=== PATIENT | female | born 2000 | race Caucasian/White ===

== ENCOUNTER 2024-10-02 08:01 | Emergency (ER) | payer OTHER, SELFPAY ==
[2024-10-02 08:05] VITALS: BP 124/72; PULSE 72; TEMP 36.6; O2SAT 98; BMI 21.8
--- NOTE | 2024-10-02 08:18 | ED_ITS ---
HPI - General Chief complaint: Nausea/Vomiting/Diarrhea Stated complaint: 9 WEEKS VOMITTING Time Seen by Provider: 10/02/24 08:05 Source: patient Mode of arrival: walk-in Limitations: no limitations History of Present Illness HPI Narrative: cc = n/v in Pt is about 9 weeks . For the last four days she has been experiencing increased nausea and vomiting. She called her OB, Dr Centeno, in [place] and was instructed to come to the ED for evaluation and treatment. She is veery emotional, having stopped all of her behavioral health meds around the time that she learned that she was . No fever or chills. No urinary symptoms. No abdominal pain or flank pain. Related Data Previous Rx's ?Medication ?Instructions ?Recorded ondansetron 4 mg disintegrating 4 mg PO Q6H PRN nausea and 10/02/24 tablet vomiting #20 tabs Allergies Allergy/AdvReac Type Severity Reaction Status Date / Time No Known Drug Allergies Allergy Verified 10/02/24 08:05 Exam Narrative Exam Narrative: Nurses notes and vital signs reviewed and patient is not hypoxic. afebrile General: Well-appearing and in no apparent distress. Skin: Warm, dry, no pallor noted. No rash. Head: Normocephalic, atraumatic. Neck: Supple, non-tender. No meningeal Eye: Pupils are equal, round and EOMI. No scleral icterus. Ears, Nose, Mouth, and Throat: TM are clear, no posterior oropharynx erythema or nasal mucosal hypertrophy, uvula is mid-line Oral mucosa is moist Cardiovascular: Regular Rate and Rhythm without murmur, gallop or rub. Respiratory: No accessory muscle use or respiratory distress. Lungs are clear to auscultation, no wheezing, rales or rhonchi Back: No CVA tenderness Musculoskeletal: normal ROM GI: Abdomen is soft, non-distended. Normal bowel sounds. No masses appreciated. No abdominal or adnexal tenderness to palpation. No rebound, guarding, or rigidity noted. Neurological: A&O x4. No cranial nerve dysfunction observed. No truncal ataxia. Moves all extremities. Sensation intact. Psychiatric: Cooperative and interactive. Normal mood and affect. Constitutional Vital Signs, click to edit/add: Last Vital Signs Temp 97.8 F 10/02/24 08:05 Pulse 72 10/02/24 08:05 Resp 18 03/02/25 08:05 BP 124/72 10/02/24 08:05 Pulse Ox 98 10/02/24 08:05 O2 Del Method Room Air 10/02/24 08:05 Course Vital Signs Vital signs: Vital Signs Temperature 97.8 F 10/02/24 08:05 Pulse Rate 72 10/02/24 08:05 Respiratory Rate 18 10/02/24 08:05 Blood Pressure 124/72 10/02/24 08:05 Pulse Oximetry 98 10/02/24 08:05 Oxygen Delivery Method Room Air 10/02/24 08:05 Temperature 97.8 F 10/02/24 08:05 Pulse Rate 72 10/02/24 08:05 Respiratory Rate 18 10/02/24 08:05 Blood Pressure 124/72 10/02/24 08:05 Pulse Oximetry 98 10/02/24 08:05 Oxygen Delivery Method Room Air 10/02/24 08:05 MDM - OB/Uterine Contractions MDM Narrative Medical decision making narrative: ED nurse ordered to establish a peripheral IV and draw blood. Pt to get a liter of NS IVF and IV zofran. The patient's blood test results were unremarkable. She felt better after receiving a liter of normal saline and IV Zofran. I gave her another dose before she departed and discharged her home with a prescription for oral dissolvable Zofran. Additionally I spent about 20 minutes talking to the patient about dietary changes and vitamin use as she progresses forward in her . She will see her OB in [place] for follow-up or return to the ED if she worsens. Lab Data Attestation: I reviewed the patient's lab results. Labs: Lab Results 10/02/24 Range/Units 08:22 WBC 8.5 (4.0-11.0) 10^3/uL RBC 4.93 (4.20-5.40) 10^6/uL Hgb 14.3 (12.0-16.0) g/dL Hct 42.9 (36.0-48.0) % MCV 87.0 (81.0-99.0) fL MCH 29.0 (26.7-34.0) pg MCHC 33.3 (29.9-35.2) g/dL RDW 12.2 (11.0-15.0) % Plt Count 302 (150-450) 10^3/uL MPV 10.7 (9.5-13.5) fL Neut % (Auto) 72.7 (43.0-75.0) % Lymph % (Auto) 19.1 L (20.5-60.0) % Thayer % (Auto) 7.2 (1.7-12.0) % Eos % (Auto) 0.7 L (0.9-7.0) % Baso % (Auto) 0.1 L (0.2-2.0) % Neut # (Auto) 6.2 (1.4-6.5) 10^3/uL Lymph # (Auto) 1.6 (1.2-3.8) 10^3/uL Thayer # (Auto) 0.6 (0.3-0.8) 10^3/uL Eos # (Auto) 0.1 (0.0-0.7) 10^3/uL Baso # (Auto) 0.0 (0.0-0.1) 10^3/uL Abs Immat Gran (auto) 0.02 (0.00-0.03) 10^3/uL Imm/Tot Granulo (auto) 0.2 (0.0-0.5) % Sodium 138 (136-145) mmol/L Potassium 3.7 (3.5-5.1) mmol/L Chloride 102 (98-107) mmol/L Carbon Dioxide 25.2 (21.0-32.0) mmol/L Anion Gap 14.5 BUN 10.0 (7.0-18.0) mg/dL Creatinine 0.89 (0.55-1.02) mg/dL Est GFR ( Amer) >60 (>=60 mL/min/1.73m^2) Est GFR (Non-Af Amer) >60 (>=60 mL/min/1.73m^2) BUN/Creatinine Ratio 11.2 Glucose 105 (74-106) mg/dL Calcium 9.5 (8.5-10.1) mg/dL Total Bilirubin 0.9 (0.2-1.0) mg/dL AST 19 (15-37) U/L ALT 27 (14-59) U/L Alkaline Phosphatase 89 (46-116) U/L Total Protein 8.0 (6.4-8.2) g/dL Albumin 4.6 (3.4-5.0) g/dL Globulin 3.4 g/dL Albumin/Globulin Ratio 1.4 Discharge Plan Discharge Chief Complaint: Nausea/Vomiting/Diarrhea Clinical Impression: Vomiting affecting Patient Disposition: Home, Self-Care Time of Disposition Decision: 09:04 Prescriptions / Home Meds: New ondansetron 4 mg tablet,disintegrating 4 mg PO Q6H PRN (Reason: nausea and vomiting) Qty: 20 0RF Print Language: Tongan Instructions: Nausea and Vomiting in (ED) Referrals: Sherri Couch MD [Primary Care Provider] - 1 week
[2024-10-02] MEDS: ONDANSETRON PF 4 MG/2 ML VIAL IV ×2 (08:24→09:01)
[2024-10-02] MEDS: 0.9 % SODIUM CHLORIDE 1,000 ML 1000 ML IV (08:24)
[2024-10-02 08:27] LABS: Basophils Percent Auto 0.1 % (0.2-2.0); Eosinophils Absolute Auto 0.1 10^3/uL (0.0-0.7); Eosinophils Percent Auto 0.7 % (0.9-7.0); Hematocrit 42.9 % (36.0-48.0); Hemoglobin 14.3 g/dL (12.0-16.0); Immature Granulocytes Abs Auto 0.02 10^3/uL (0.00-0.03); Immature Granulocytes Pct Auto 0.2 % (0.0-0.5); Lymphocytes Absolute Auto 1.6 10^3/uL (1.2-3.8); Lymphocytes Percent Auto 19.1 % (20.5-60.0); Mean Corpuscular HGB Conc 33.3 g/dL (29.9-35.2); Mean Platelet Volume 10.7 fL (9.5-13.5); Monocytes Absolute Auto 0.6 10^3/uL (0.3-0.8); Monocytes Percent Auto 7.2 % (1.7-12.0); Neutrophils Absolute Auto 6.2 10^3/uL (1.4-6.5); Neutrophils Percent Auto 72.7 % (43.0-75.0); Platelet Count 302 10^3/uL (150-450); Red Blood Count 4.93 10^6/uL (4.20-5.40); Red Cell Distribution Width 12.2 % (11.0-15.0); White Blood Count 8.5 10^3/uL (4.0-11.0)
[2024-10-02 08:42] LABS: Alanine Aminotransferase 27 U/L (14-59); Albumin Globulin Ratio 1.4; Albumin Level 4.6 g/dL (3.4-5.0); Alkaline Phosphatase 89 U/L (46-116); Anion Gap 14.5; Aspartate Amino Transferase 19 U/L (15-37); BUN Creatinine Ratio 11.2; Bilirubin Total 0.9 mg/dL (0.2-1.0); Calcium 9.5 mg/dL (8.5-10.1); Carbon Dioxide 25.2 mmol/L (21.0-32.0); Chloride 102 mmol/L (98-107); Estimated GFR (African America >60 (>=60 mL/min/1.73m^2); Estimated GFR (Non-African Ame >60 (>=60 mL/min/1.73m^2); Globulin 3.4 g/dL; Glucose 105 mg/dL (74-106); Potassium 3.7 mmol/L (3.5-5.1); Sodium 138 mmol/L (136-145)
[2024-10-02 09:09] VITALS: BP 126/78; PULSE 84; O2SAT 99
== END 2024-10-02 09:10 | disposition home or self-care (01) ==
PROVIDERS: Emergency Provider Emergency Medicine; PCP Family Medicine
DX: O21.9 Vomiting of pregnancy, unspecified (principal); Z3A.09 9 weeks gestation of pregnancy
CPT/HCPCS: 36415; 80053; 85025; 96361; 96374; 96376; 99284; J2405